=== PATIENT | female | born 1995 | race Caucasian/White ===

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

== ENCOUNTER 2017-03-22 13:05 | Emergency (ER) | payer OTHER ==
[2017-03-22 13:11] VITALS: BMI 20.7
[2017-03-22] MEDS ORDERED: ONDANSETRON 4 MG/2 ML VIAL IVPUSH ONE (13:51)
[2017-03-22] MEDS ORDERED: morphine CARPU-JECT 4 MG/1 ML DISP.SYRIN IVPUSH ONE (13:51)
[2017-03-22] MEDS ORDERED: SODIUM CHLORIDE 0.9% 1000 ML INFUS.BAG IV ONE (13:51)
[2017-03-22 14:02] LABS: BASOPHIL 0.4 % (0-2.0); EOSINOPHIL 0.3 % (0-4.5); MEAN PLT VOLUME 7.7 fl (7.5-11.1); NEUTROPHILS 76.8 % (42.8-82.8); PLATELET COUNT 311 K/MM3 (134-434); RDW 13.8 % (11.6-15.6); WHITE BLOOD COUNT 11.2 K/mm3 (4.0-10.0)
[2017-03-22] MEDS ORDERED: ACETAMINOPHEN 1000 MG/100 ML VIAL (NON FORMULARY) IVPB ONE (14:03)
[2017-03-22 14:12] LABS: URINE APPEARANCE CLEAR; URINE BILIRUBIN NEGATIVE (NEGATIVE); URINE BLOOD NEGATIVE (NEGATIVE); URINE COLOR STRAW; URINE GLUCOSE (UA) NEGATIVE (NEGATIVE); URINE KETONE NEGATIVE (NEGATIVE); URINE NITRITE NEGATIVE (NEGATIVE); URINE PROTEIN NEGATIVE (NEGATIVE); URINE UROBILINOGEN NEGATIVE mg/dL (0.2-1.0)
[2017-03-22 14:19] LABS: ALBUMIN 4.4 g/dl (3.4-5.0); ALK PHOS 118 U/L (45-117); ANION GAP 11 (8-16); BILIRUBIN,TOTAL 0.4 mg/dL (0.2-1.0); CALCIUM 9.7 mg/dL (8.5-10.1); CO2 24 mmol/L (21-32); CREATININE 0.8 mg/dL (0.55-1.02); GLUCOSE,RANDOM 117 mg/dL (74-106); SGOT/AST 13 U/L (15-37); SGPT/ALT 19 U/L (12-78); TOT PROT 7.9 g/dl (6.4-8.2)
[2017-03-22] MEDS ORDERED: morphine CARPU-JECT 10 MG/1 ML DISP.SYRIN ONE (14:30)
[2017-03-22] MEDS ORDERED: ACETAMINOPHEN INJECTION 100 ML IVPB ONE (14:30)
[2017-03-22] MEDS ORDERED: ONDANSETRON 4 MG/2 ML VIAL ONE (14:30)
--- NOTE | 2017-03-22 14:30 | PDOC ---
History of Present Illness - General Chief Complaint: Pain Stated Complaint: ABD PAIN Time Seen by Provider: 03/22/17 13:13 History Source: Patient Exam Limitations: No Limitations - History of Present Illness Initial Comments: 03/22/17 14:25 The patient is a 21F with no PMH who presents to the ED with 3 days of abdominal pain. The patient states that the pain started 1 day after she started taking flagyll for a suspected infection. The patient states that the abdominal pain is located in her b/l lower quadrants. She has also had loose stools x 3 days that is not malodorous. She describes the pain as sharp, 9 /10, does not radiate, and nothing makes it better or worse. She has not taken anything for the pain. She denies fever/chills, CP, SOB, epigastric pain. She admits to some hematuria which has resolved. LMP 2 weeks ago Hx: gerry has kidney stones Past History - Past Medical History Allergies/Adverse Reactions: Allergies Allergy/AdvReac Type Severity Reaction Status Date / Time No Known Allergies Allergy Verified 03/22/17 13:08 Home Medications: Ambulatory Orders Metronidazole [Flagyl -] 500 mg PO BID 03/22/17 Other medical history: none - Suicide/Smoking/Psychosocial Hx Smoking History: Never smoked Have you smoked in the past 12 months: No Information on smoking cessation initiated: No Hx Alcohol Use: No Drug/Substance Use Hx: No Substance Use Type: None Review of Systems - Review of Systems Able to Perform ROS?: Yes Is the patient limited Iranian proficient: No Constitutional: No: Chills, Fever Respiratory: No: Cough, Orthopnea, Shortness of Breath Cardiac (ROS): No: Chest Pain ABD/GI: Yes: Diarrhea, Nausea. No: Constipated, Vomiting : No: Burning, Dysuria, Discharge Musculoskeletal: No: Back Pain, Muscle Pain Integumentary: No: Lesions, Rash Neurological: No: Headache, Numbness, Tingling, Weakness *Physical Exam - Vital Signs Last Vital Signs Temp Pulse Resp BP Pulse Ox 98.0 F 88 18 136/56 100 03/22/17 13:10 03/22/17 13:10 03/22/17 13:10 03/22/17 13:10 03/22/17 13:10 - Physical Exam General Appearance: Yes: Nourished, Appropriately Dressed. No: Apparent Distress HEENT: positive: Normal Voice, Hearing Grossly Normal Respiratory/Chest: positive: Lungs Clear, Normal Breath Sounds. negative: Chest Tender, Respiratory Distress, Accessory Muscle Use Cardiovascular: positive: Regular Rhythm, Regular Rate, S1, S2. negative: Diastolic Murmur, Systolic Murmur Female Pelvic Exam: positive: normal external exam, cervical os closed, normal adnexa, normal size ovaries. negative: CMT, discharge, lesions, adnexal tenderness Gastrointestinal/Abdominal: positive: Tender (tender to deep palpation in b/l lower quadrants), Flat, Soft, Tenderness. negative: Protuberent, Distended, Guarding, Rebound Musculoskeletal: negative: CVA Tenderness, CVA Tenderness (R), CVA Tenderness (L ) Extremity: negative: Swelling, Calf Tenderness Integumentary: positive: Dry, Warm. negative: Cyanotic, Clammy Neurologic: positive: Fully Oriented, Alert, Normal Mood/Affect, Normal Response , Motor Strength 10/16 ED Treatment Course - LABORATORY CBC & Chemistry Diagram: 03/22/17 13:55 03/22/17 13:55 - ADDITIONAL ORDERS Additional order review: Laboratory Results 03/22/17 03/22/17 13:58 13:55 Sodium 138 Potassium 3.5 Chloride 103 Carbon Dioxide 24 Anion Gap 11 BUN 7 Creatinine 0.8 Creat Clearance w eGFR > 60 Random Glucose 117 H Calcium 9.7 Total Bilirubin 0.4 AST 13 L ALT 19 Alkaline Phosphatase 118 H Total Protein 7.9 Albumin 4.4 Urine Color Straw Urine Appearance Clear Urine pH 8.0 Urine Protein Negative Urine Glucose (UA) Negative Urine Ketones Negative Urine Blood Negative Urine Nitrite Negative Urine Bilirubin Negative Urine Urobilinogen Negative Urine HCG, Qual Negative 03/22/17 13:55 RBC 5.05 MCV 88.0 MCHC 33.0 RDW 13.8 MPV 7.7 Neutrophils % 76.8 Lymphocytes % 16.9 Monocytes % 5.6 Eosinophils % 0.3 Basophils % 0.4 Medical Decision Making - Medical Decision Making 03/22/17 14:31 The patient is a 21F with no PMH who presents to the ED with abdominal pain following antibiotic use. Most likely on the differential is a GI reaction to her medication but I want to rule out PID. I will order the following and reassess when they return: - CBC - CMP - UA w/ u-preg 03/22/17 15:17 WBC 11.2. Labs WNL. Upreg negative. Patient received IV tylenol and zofran, was still complaining of pain. On re-check, patient was asleep. *DC/Admit/Observation/Transfer Diagnosis at time of Disposition: Abdominal pain Qualifiers: Abdominal location: lower abdomen, unspecified Qualified Code(s): R10.30 - Lower abdominal pain, unspecified; R10.30 - Lower abdominal pain, unspecified - Discharge Dispostion Disposition: HOME Condition at time of disposition: Improved Admit: No - Patient Instructions Printed Discharge Instructions: DI for Abdominal Pain-Adult Additional Instructions: Please return to the ER if symptoms persist, worsen, or if new symptoms arise. Please stop taking your Flagyll antibiotic. 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 Print Language: MALTESE
--- NOTE | 2017-03-22 16:12 | PDOC ---
Attending Attestation - Resident Resident Name: Juvenal Virk - ED Attending Attestation I have performed the following: I have examined & evaluated the patient, The case was reviewed & discussed with the resident, I agree w/resident's findings & plan, Exceptions are as noted - HPI HPI: 03/22/17 16:10 21F with no PMH presenting to ED with 3 days of lower abdominal pain. 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 Since taking the flagyl, pt began to experience loose stools and lower abdominal cramps. She denies F/C. Denies N/V. Reports improvement in the vaginal discharge. Denies any vaginal bleeding. Denies dysuria or flank pain. - Physicial Exam PE: 03/22/17 16:15 "GENERAL: Awake, alert, and fully oriented, in no acute distress HEAD: No signs of trauma EYES: PERRLA, EOMI, sclera anicteric, conjunctiva clear ENT: Auricles normal inspection, hearing grossly normal, nares patent, oropharynx clear without exudates. Moist mucosa NECK: Normal ROM, supple, no lymphadenopathy, JVD, or masses LUNGS: Breath sounds equal, clear to auscultation bilaterally. No wheezes, and no crackles HEART: Regular rate and rhythm, normal S1 and S2, no murmurs, rubs or gallops ABDOMEN: Soft, minimally tender LLQ and RLQ, normoactive bowel sounds. No guarding, no rebound. No masses : No CMT, scant physiologic discharge, os closed, no adnexal masses or tenderness, no foul smelling discharge EXTREMITIES: Normal range of motion, no edema. No clubbing or cyanosis. No cords, erythema, or tenderness NEUROLOGICAL: Cranial nerves II through XII grossly intact. Normal speech, normal gait SKIN: Warm, Dry, normal turgor, no rashes or lesions noted. - Medical Decision Making 03/22/17 16:35 21 F with abdominal cramps and diarrhea in the context of taking flagyl for infection. Likely adverse reaction to antibiotic, as pt's abdominal exam is relatively benign. Pt with no findings on pelvic exam concerning for PID. Pain is diffuse lower abdominal, not consistent with ovarian torsion or appendicitis. - Labs, UA, UPT 03/22/17 16:37 Labs wnl, UA clean. Pt reassessed - now completely asymptomatic. Abdomen is completely benign, no RLQ or LLQ tenderness to suggest appy or ovarian pathology. Pt is well appearing, now with no complaints, vitals normal .Clinically stable for DC.
[2017-03-22 16:37] VITALS: BP 120/74; PULSE 82; TEMP 98.3
[2017-03-22 17:24] LABS: URINE LEUK ESTERASE 1+ (NEGATIVE)
[2017-03-22 20:46] LABS: URINE BACTERIA FEW /hpf (NEGATIVE); URINE RBC 0-2 /hpf (0-3)
== END 2017-03-22 16:33 | disposition home or self-care (01) ==
LOC: JER 13:05
PROC: 3E0337Z Introduction of Electrolytic and Water Balance Substance into Peripheral Vein, Percutaneous Approach (ICD-10-PCS; principal; 2017-03-22)
PROC: 3E033NZ Introduction of Analgesics, Hypnotics, Sedatives into Peripheral Vein, Percutaneous Approach (ICD-10-PCS; 2017-03-22)
PROC: 3E033GC Introduction of Other Therapeutic Substance into Peripheral Vein, Percutaneous Approach (ICD-10-PCS; 2017-03-22)
DX: R10.30 Lower abdominal pain, unspecified (principal)
CPT/HCPCS: 36415; 80053; 81003; 81015; 84703; 85025; 87491; 87591; 99282-25